=== PATIENT | female | born 2005 | race Two or more races ===

== ENCOUNTER 2023-12-25 19:08 | Emergency (ER) | payer MEDICAID, OTHER ==
[~2023-12-25] VITALS: Ht 152.4 cm; Wt 52.8 kg
[2023-12-25 20:02] VITALS: BP 134/81; PULSE 73; RESP 17; O2SAT 99
== END 2023-12-25 22:37 | disposition left against medical advice (07) ==
LOC: ER 19:08
DX: R11.0 Nausea (principal); R42 Dizziness and giddiness; Z53.21 Procedure and treatment not carried out due to patient leaving prior to being seen by health care provider

== ENCOUNTER 2024-07-08 10:54 | Emergency (ER) | payer MEDICAID ==
[~2024-07-08] VITALS: Ht 152.4 cm; Wt 48.7 kg
[2024-07-08 11:35] VITALS: BP 126/74; PULSE 95; RESP 16; TEMP 98.2; O2SAT 98
[2024-07-08] MEDS ORDERED: MONT10TA23 PO (12:28)
[2024-07-08] MEDS ORDERED: PROM1SOL4 PO (12:28)
--- NOTE | 2024-07-08 12:29 | ED.PDOC ---
Epistaxis- HPI HPI Comments 18-year-old female complaining of nosebleed which started approximately an hour ago. Patient states she has been feeling nasal congestion and cough over the last week. Patient has been holding pressure on her nose but still his blood dripping to the back of her throat and she started vomiting of blood so she got concerned so came to the emergency department. 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 Pertinent RE[employer] MANAGER History Constitutional: denies: chills, diaphoresis, fatigue, fever, malaise, sweats, weakness, others EENTM: denies: blurred vision, double vision, ear bleeding, ear discharge, ear drainage, ear pain, ear ringing, eye pain, eye redness, hearing loss, mouth pain, mouth swelling, nasal discharge, nose bleeding, nose congestion, nose pain, photophobia, tearing, throat pain, throat swelling, voice changes, others Respiratory: denies: cough, hemoptysis, orthopnea, SOB at rest, shortness of breath, SOB with excertion, stridor, wheezing, others Cardiovascular: denies: chest pain, dizzy spells, diaphoresis, Dyspnea on exertion, edema, irregular heart beat, left arm pain, lightheadedness, palpitations, PND, syncope, others Gastrointestinal: denies: abdomen distended, abdominal pain, blood streaked bowels, constipated, diarrhea, dysphagia, difficulty swallowing, hematemesis, melena, nausea, poor appetite, poor fluid intake, rectal bleeding, rectal pain, vomiting, others Genitourinary: denies: abnormal vagina bleeding, burning, dyspareunia, dysuria, flank pain, frequency, hematuria, incontinence, pain, , vagina discharge, urgency, others Musculoskeletal: denies: back pain, gout, joint pain, joint swelling, muscle pain, muscle stiffness, neck pain, others Integumetry: denies: bruises, change in color, change in hair/nails, dryness, laceration, lesions, lumps, rash, wounds, others Allergic/Immunocompromised: denies: Difficulty Healing, Frequent Infections, Hives, Itching, others Physical Exam General Appearance: No Apparent Distress, Normal HEENT: Normal ENT Inspection, Pharynx Normal, TMs Normal, Other (Bleeding from left-sided nare) Neck: Full Range of Motion, Non-Tender, Normal, Normal Inspection Respiratory: Chest Non-Tender, Lungs Clear, No Accessory Muscle Use, No Respiratory Distress, Normal Breath Sounds Cardiovascular: No Edema, No JVD, No Murmur, No Gallop, Normal Peripheral Pulses, Regular Rate/Rhythm Breast Exam: Deferred Gastrointestinal: No Organomegaly, Non Tender, No Pulsatile Mass, Normal Bowel Sounds, Soft Genitalia: Deferred Pelvic: Deferred Rectal: Deferred Extremities: No calf tenderness, Normal capillary refill, Normal inspection, Normal range of motion, Non-tender, No pedal edema Musculoskeletal : Apperance: Normal Neurologic: Alert, sales merchandiser II-XII nml as Tested, No Motor Deficits, Normal Affect, Normal Mood, No Sensory Deficits Cerebellar Function: Normal Reflexes: Normal Skin: Dry, Normal Color, Warm Lymphatic: No Adenopathy Was a procedure done? Was a procedure done?: Yes Sedation Sedation?: No Nasal Cautery and Pack Indicaton: Posterior epitaxis Silver nitrate: Left Hemostasis: Was obtained Location of packing: Left Packing: Expanding sponge Informed consent obtained: Yes Risks/benefits/alt described: Yes Differential Diagnosis (NSB) Differential Diagnosis: Anterior Nasal Bleed, Posterior Nasal Bleed, Hypertension, Coagulopathy X-Ray, Labs, Meds, VS Vital Signs Date Time Temp Pulse Resp B/P (MAP) Pulse Ox O2 Delivery O2 Flow Rate FiO2 07/08/24 11:35 95 16 98 Room Air 07/08/24 11:35 98.2 95 16 126/74 (91) 98 98.2 07/08/24 11:15 98.2 95 16 126/74 (91) 98 X-Ray, Labs, Meds, VS Comment Imaging: X-rays and CT scans were reviewed and interpreted by this provider, imaging shows no fractures and no pathological disease. Pending radiology review. Laboratory: Labs reviewed and interpreted by this provider. No significant abno rmalities noted. Patient has prior medical visits reviewed. Med reconciliation performed Vital signs reviewed Time of 1ST Reevaluation: 12:28 Reevaluation 1ST: Improved Patient Education/Counseling: Diagnosis, Treatment, Need For Follow Up (Patient advised to follow-up in the emergency room in the next 24 to 48 hours if symptoms do not improve. Advised follow-up with PCP in the next 3 to 5 days. Patient verbalized understanding. ) Family Education/Counseling: Diagnosis Departure 1 Departure Time of Disposition: 12:26 Impression: Primary Impression: URI (upper respiratory infection) Qualified Codes: J06.9 - Acute upper respiratory infection, unspecified Additional Impression: Nosebleed Disposition: HOME / SELF CARE / HOMELESS Condition: Fair Additional Instructions: Discharge Note: Drink plenty of fluids. Follow up with your primary Dr. If your condition becomes worse call and follow up with your primary Dr. for instructions or return to the ER if needed. Thank you for visiting [facility]. e-Prescriptions Montelukast Sodium (Singulair) 10 Mg Tab 10 MG PO DAILY PRN, #20 TAB Prov: LATASHA MERCHANT 07/08/24 Promethazine-Dm (Promethazine Dm 6.25-15 mg/5Ml) 1 Martha Martha 5 ML PO TID PRN, #240 ML Prov: LATASHA MERCHANT 07/08/24 Discharged With: Self Critical Care Note Critical Care Time?: No Stability Stability form required: No Heart Score Heart Score: Heart Score Response (Comments) Value History N/A 0 EKG N/A 0 Age N/A 0 Risk Factors N/A 0 Troponin N/A 0 Total 0 LATASHA MERCHANT Jul 08, 2024 12:29
== END 2024-07-08 12:33 | disposition home or self-care (01) ==
LOC: ER 10:54
DX: R04.0 Epistaxis (principal); J06.9 Acute upper respiratory infection, unspecified
CPT/HCPCS: 30901